=== PATIENT | male | born 1990 | race Caucasian/White ===

== ENCOUNTER 2020-11-18 05:04 | Emergency (ER) | payer SELFPAY ==
[~2020-11-18] VITALS: Ht 180.3 cm; Wt 90.7 kg
--- NOTE | 2020-11-18 05:15 | NUR ---
harpal and faustino from detox center for drug overdose, was given 3 rounds of of narcan per staff and 4mg Zofran by RA, nausea and vomiting id present, pt breathing even and unlabored, denies any chest pain denies SI/HI, hooke to monitor and SPOX will cont to monitor
[2020-11-18] MEDS ORDERED: PROCHLORPERAZINE EDISYLATE 10 MG/2 ML VIAL IVP ONE (05:30)
[2020-11-18] MEDS ORDERED: PROCHLORPERAZINE EDISYLATE 10 MG/2 ML VIAL ONE (05:30)
[2020-11-18] MEDS ORDERED: NALO1DIS2 IJ (05:43)
--- NOTE | 2020-11-18 05:58 | NUR ---
[employer]: Car [phone] call when patient gets d/c for pickup
[2020-11-18] MEDS ORDERED: NALOXONE HCL 0.4 MG/ML AMPUL ONE (06:24)
[2020-11-18] MEDS ORDERED: NALOXONE HCL 0.4 MG/ML AMPUL IV ONE (06:30)
--- NOTE | 2020-11-18 08:17 | NUR ---
PT IS ALERT AND ORIENTED. AMBULATORY W/ STEADY GAIT. PT STATES FEELING MUCH BETTER AND WANTS TO GO BACK TO HIS REHAB PLACE. INFORMED THAT [employer] LEFT A CONTACT NUMBER SO HE CAN BE PICKED UP BUT DECLINED. ERMD AWARE. DISCHARGE IN STABLE CONDITION.
[2020-11-18 08:21] VITALS: BP 115/65
== END 2020-11-18 08:21 | disposition home or self-care (01) ==
LOC: ER 05:04
DX: T40.601A Poisoning by unspecified narcotics, accidental (unintentional), initial encounter (principal); I10 Essential (primary) hypertension; I48.91 Unspecified atrial fibrillation; Y92.89 Other specified places as the place of occurrence of the external cause
CPT/HCPCS: 96374; 99283; J0780; J2310